=== PATIENT | male | born 1960 | race Caucasian/White ===

== ENCOUNTER 2024-12-16 03:57 | Observation (INO) | payer OTHER ==
[2024-12-16] MEDS ORDERED: KETOROLAC TROMETHAMINE 30 MG/1 ML VIAL ONE (05:08)
[2024-12-16] MEDS: KETOROLAC TROMETHAMINE 30 MG/1 ML VIAL IM ONE (05:17)
[2024-12-16 06:00] LABS: URINE APPEARANCE TURBID; URINE BILIRUBIN 3+ (NEGATIVE); URINE COLOR RED; URINE GLUCOSE (UA) NEGATIVE (NEGATIVE); URINE LEUK ESTERASE 3+ (NEGATIVE); URINE NITRITE POSITIVE (NEGATIVE); URINE PROTEIN 2+ (NEGATIVE); URINE UROBILINOGEN 0.2 mg/dL (0.2-1.0)
[2024-12-16 06:09] LABS: BASO % 0.3 % (0-2.0); EOS % 0.7 % (0-4.5); HEMATOCRIT 33.7 % (35.4-49); HEMOGLOBIN 11.6 GM/dL (11.7-16.9); LYMPH % 10.1 % (8-40); MCH 31.8 pg (25.7-33.7); MCHC 34.6 g/dl (32.0-35.9); MEAN CELL VOLUME 91.9 fl (80-96); MEAN PLT VOLUME 6.8 fl (7.5-11.1); MONO % 3.3 % (3.8-10.2); NEUT % 85.6 % (42.8-82.8); PLATELET COUNT 374 10^3/uL (134-434); RBC 3.66 M/mm3 (4.00-5.60); RDW 13.3 % (11.9-15.9); WHITE BLOOD COUNT 10.2 K/mm3 (4.0-10.0)
[2024-12-16 06:21] LABS: POTASSIUM 3.2 mmol/L (3.5-5.1)
[2024-12-16 06:23] LABS: CALCIUM 8.8 mg/dL (8.5-10.1)
[2024-12-16 06:24] LABS: BLOOD UREA NITROGEN 17.9 mg/dL (7-18)
[2024-12-16] MEDS ORDERED: SULFAMETHOXAZOLE/TRIMETHOPRIM 800MG/160MG D.S. TABLET ONE (06:24)
[2024-12-16 06:27] LABS: CREATININE 0.8 mg/dL (0.55-1.3)
[2024-12-16 06:28] LABS: BILIRUBIN,TOTAL 0.4 mg/dL (0.2-1); TOT PROT 8.2 g/dl (6.4-8.2)
[2024-12-16] MEDS: SULFAMETHOXAZOLE/TRIMETHOPRIM 800MG/160MG D.S. TABLET PO ONE ×2 (06:33)
[2024-12-16] MEDS ORDERED: MAGNESIUM SULFATE IN WATER 2 GM/50 ML IVPB IVPB ONE (06:36)
[2024-12-16] MEDS ORDERED: POTASSIUM CHLORIDE TABS 20 MEQ TABLET.ER (FP) PO ONE (06:36)
[2024-12-16] MEDS: POTASSIUM CHLORIDE TABS 20 MEQ TABLET.ER (FP) PO ONE (06:44)
[2024-12-16] MEDS: MAGNESIUM SULF 50% (8.12 MEQ/2 ML-1 GM VIAL) IVPB ONE (06:45)
[2024-12-16] MEDS: SODIUM CHLORIDE 0.9% 500 ML INFUS.BAG IV ONE ×2 (06:50→08:04)
[2024-12-16 07:44] VITALS: RESP 18
[2024-12-16] MEDS ORDERED: ACETAMINOPHEN 325 MG TABLET (FP) ONE (08:06)
[2024-12-16] MEDS: ACETAMINOPHEN 325 MG TABLET (FP) PO ONE (08:10)
[2024-12-16 09:48] LABS: EPI CELLS 0 /uL (0-25.1); HYALINE CASTS 6 /uL (0-3.1); URINE RBC 42030 /uL (0-23.9); URINE WBC 55 /uL (0-25.8)
[2024-12-16 09:49] LABS: URINE BACTERIA 1 /uL (0-1359)
[2024-12-16 12:02] VITALS: BMI 31.4
[2024-12-16] MEDS: KETOROLAC TROMETHAMINE 15 MG/ML VIAL IVPUSH PRN (14:47)
[2024-12-16] MEDS: ACETAMINOPHEN 500 MG TABLET (FP) PO PRN (16:45)
[2024-12-16] MEDS: oxyCODONE HCL 5 MG TABLET PO PRN (20:33)
[2024-12-16] MEDS: OXYBUTYNIN CHLORIDE 5 MG TABLET PO SCH (21:37)
[2024-12-16] MEDS: PHENAZOPYRIDINE HCL 100 MG TABLET (FP) PO SCH (21:37)
[2024-12-16 22:04] LABS: BASO % 0.1 % (0-2.0); EOS % 0.6 % (0-4.5); HEMATOCRIT 25.9 % (35.4-49); HEMOGLOBIN 8.9 GM/dL (11.7-16.9); LYMPH % 17.2 % (8-40); MCH 31.3 pg (25.7-33.7); MCHC 34.4 g/dl (32.0-35.9); MEAN CELL VOLUME 91.1 fl (80-96); MEAN PLT VOLUME 6.4 fl (7.5-11.1); MONO % 5.4 % (3.8-10.2); NEUT % 76.7 % (42.8-82.8); PLATELET COUNT 289 10^3/uL (134-434); RBC 2.84 M/mm3 (4.00-5.60); RDW 13.6 % (11.9-15.9); WHITE BLOOD COUNT 7.9 K/mm3 (4.0-10.0)
[2024-12-16 22:13] LABS: INR 1.2 (0.83-1.09); PROTHROMBIN TIME (PATIENT) 13.2 SEC (9.7-13.0)
[2024-12-17] MEDS: LOSARTAN POTASSIUM 50 MG TABLET PO SCH (09:23)
[2024-12-17] MEDS: TAMSULOSIN HCL 0.4 MG CAP PO SCH (09:23)
[2024-12-17] MEDS: FINASTERIDE 5 MG TABLET (FP) PO SCH (09:23)
[2024-12-17] MEDS: amLODIPine BESYLATE 5 MG TABLET (FP) PO SCH (09:23)
[2024-12-17] MEDS: MULTIVITAMINS (DAILY MVI) TABLET (FP) PO SCH (09:23)
[2024-12-17] MEDS: CEFTRIAXONE 1 G/50 ML PREMIX 50 ML IVPB SCH (09:23)
[2024-12-17 10:06] LABS: HEMATOCRIT 23.9 % (35.4-49); HEMOGLOBIN 8.1 GM/dL (11.7-16.9); MCH 31.4 pg (25.7-33.7); MCHC 33.9 g/dl (32.0-35.9); MEAN CELL VOLUME 92.4 fl (80-96); MEAN PLT VOLUME 6.6 fl (7.5-11.1); PLATELET COUNT 276 10^3/uL (134-434); RBC 2.59 M/mm3 (4.00-5.60); RDW 13.8 % (11.9-15.9); WHITE BLOOD COUNT 5.5 K/mm3 (4.0-10.0)
[2024-12-17 10:38] LABS: POTASSIUM 3.7 mmol/L (3.5-5.1)
[2024-12-17 10:42] LABS: BLOOD UREA NITROGEN 18.2 mg/dL (7-18); CALCIUM 8.3 mg/dL (8.5-10.1)
[2024-12-17 10:45] LABS: CREATININE 0.8 mg/dL (0.55-1.3)
[2024-12-18] MEDS: POLYETHYLENE GLYCOL (HEALTHYLAX) 3350 17 GM PACKET PO SCH (06:13)
[2024-12-18 08:23] LABS: POTASSIUM 3.5 mmol/L (3.5-5.1)
[2024-12-18 08:27] LABS: BASO % 0.4 % (0-2.0); EOS % 2.5 % (0-4.5); HEMATOCRIT 24.5 % (35.4-49); HEMOGLOBIN 8.2 GM/dL (11.7-16.9); LYMPH % 25.2 % (8-40); MCH 31.2 pg (25.7-33.7); MCHC 33.5 g/dl (32.0-35.9); MEAN CELL VOLUME 93.2 fl (80-96); MEAN PLT VOLUME 6.9 fl (7.5-11.1); NEUT % 64.9 % (42.8-82.8); PLATELET COUNT 273 10^3/uL (134-434); RBC 2.63 M/mm3 (4.00-5.60); RDW 13.8 % (11.9-15.9); WHITE BLOOD COUNT 4.5 K/mm3 (4.0-10.0)
[2024-12-18 08:30] LABS: ALBUMIN 3.2 g/dl (3.4-5.0); BLOOD UREA NITROGEN 14.2 mg/dL (7-18); CALCIUM 8.7 mg/dL (8.5-10.1)
[2024-12-18 08:33] LABS: CREATININE 0.8 mg/dL (0.55-1.3)
[2024-12-18 08:35] LABS: BILIRUBIN,TOTAL 0.4 mg/dL (0.2-1); TOT PROT 6.4 g/dl (6.4-8.2)
[2024-12-18 14:15] VITALS: BP 129/74; PULSE 105; TEMP 98.6
[2024-12-18] MEDS: IRON SUCROSE INJECTION 100 MG in SODIUM CHLORIDE 95 ML IVPB ONE (14:33)
[2024-12-18] MEDS: TAMSULOSIN HCL 0.4 MG CAP PO ONE (14:48)
== END 2024-12-18 18:05 | disposition home or self-care (01) ==
LOC: JER 03:57 → JERBED 10:05 → J6S 11:43
PROVIDERS: ADMIT Internal Medicine; ATTEND Nurse Practitioner Family
PROC: 0T9B70Z Drainage of Bladder with Drainage Device, Via Natural or Artificial Opening (ICD-10-PCS; principal; 2024-12-16)
PROC: 3E033GC Introduction of Other Therapeutic Substance into Peripheral Vein, Percutaneous Approach (ICD-10-PCS; 2024-12-16)
PROC: 3E0233Z Introduction of Anti-inflammatory into Muscle, Percutaneous Approach (ICD-10-PCS; 2024-12-16)
PROC: 3E0333Z Introduction of Anti-inflammatory into Peripheral Vein, Percutaneous Approach (ICD-10-PCS; 2024-12-16)
PROC: 3E0337Z Introduction of Electrolytic and Water Balance Substance into Peripheral Vein, Percutaneous Approach (ICD-10-PCS; 2024-12-16)
DX: N30.01 Acute cystitis with hematuria (principal); R33.9 Retention of urine, unspecified; E78.5 Hyperlipidemia, unspecified; I10 Essential (primary) hypertension; N40.1 Benign prostatic hyperplasia with lower urinary tract symptoms
CPT/HCPCS: 36415; 51702; 80048; 80053; 81003; 83540; 83550; 85025; 85027; 85610; 86850; 86900; 86901; 87086; 96365; 96367; 96372; 96375; 99285-25; G0378; J1756